=== PATIENT | male | born 1960 | race Caucasian/White ===

== ENCOUNTER → 2016-08-18 | Outpatient (REF) ==
--- NOTE | 2016-08-18 12:54 | REP ---
Clinical: Pain and disability. Technique: AP, lateral, bilateral oblique views of the right hand. Findings: Subchondral sclerosis and joint space narrowing at the interphalangeal joints and first metatarsophalangeal joint consistent with mild osteoarthritic changes. Swelling adjacent to the first and second interphalangeal joints may represent associated inflammatory arthritides. No acute fracture dislocation. Impression: Findings to suggest osteoarthritic and inflammatory arthritic changes. Signed by Eber Keys MD 08/18/2016 12:45 P
--- NOTE | 2016-08-18 12:56 | REP ---
Clinical: Pain. Technique: AP, lateral, bilateral oblique views of the right foot. Findings: Increased sclerosis at the first metatarsophalangeal and interphalangeal joint suggest arthritic degenerative changes. Remainder examination appears relatively normal for age. No acute fracture dislocation. Impression: Arthritic changes primarily involving the first toe. Signed by Eber Keys MD 08/18/2016 12:47 P
== END ==
LOC: M SMT 11:44
PROVIDERS: ATTEND Internal Medicine
DX: Z02.1 Encounter for pre-employment examination (principal)